=== PATIENT | male | born 1945 | race Caucasian/White ===

== ENCOUNTER 2018-04-04 13:52 | Observation (INO) | payer OTHER ==
[~2018-04-04] VITALS: Ht 177.8 cm; Wt 67.6 kg
[~2018-04-04 13:52] MED LIST: ASPIR 8181 MG PO; FISH OIL 1,001000 M2 PO; LISINOPRIL2.5 M1 PO; METFORMIN HCL500 MG PO; PRAVACHOL20 MG PO; TRADJENTA5 MG PO; VITAMIN D1000 UNI1 PO
[2018-04-04 14:02] VITALS: BP 155/74
[2018-04-04 14:15] LABS: ABSOLUTE BASOPHILS 0.1 thou/uL (0.0-0.2); ABSOLUTE EOSINOPHILS 0.1 thou/uL (0.0-0.7); ABSOLUTE LYMPHOCYTES 1.1 thou/uL (0.8-5.3); ABSOLUTE NEUTROPHILS 5.5 thou/uL (1.6-8.1); BASOPHILS 0.8 %; EOSINOPHILS 1.7 %; HEMOGLOBIN 13.8 gm/dL (14.0-18.0); LYMPHOCYTES 13.9 %; MCH 28.8 pg (26.0-34.0); MCHC 33.5 g/dL (28.0-37.0); MONOCYTES 13.1 %; MPV 8.7 fl. (7.2-11.1); NUCLEATED RBCS 0 /100WBC; PLATELET COUNT* 232 thou/uL (150-400); POLYS 70.5 %; RBC 4.77 mil/uL (4.50-6.00); RDW-CV 13.2 % (10.5-14.5); WBC 7.8 thou/uL (4.0-11.0)
[2018-04-04 14:24] LABS: APTT 28.1 Seconds (25.0-31.3); PROTIME 10.3 Seconds (9.20-11.50)
[2018-04-04 14:35] LABS: ANION GAP 8 mmol/L (7-16); BUN 20 mg/dL (7-18); CALCIUM 9.4 mg/dL (8.5-10.1); CHLORIDE 102 mmol/L (98-107); CO2 28 mmol/L (21-32); CREATININE 1.2 mg/dL (0.6-1.3); GLUCOSE 154 mg/dL (70-99); POTASSIUM 4.4 mmol/L (3.5-5.1); SODIUM 138 mmol/L (136-145)
[2018-04-04 14:53] LABS: ALBUMIN 4.4 g/dL (3.4-5.0); ALKALINE PHOSPHATASE 83 U/L (46-116); LIPASE 138 U/L (73-393); MAGNESIUM 1.8 mg/dL (1.8-2.4); NT-PRO BRAIN NAT PEPTIDE 260 pg/mL (<300); SGOT 12 U/L (15-37); SGPT 23 U/L (30-65); TOTAL BILIRUBIN 0.6 mg/dL (<0.1-1.0); TOTAL PROTEIN 7.8 g/dL (6.4-8.2); TROPONIN-I LEVEL <0.06 ng/mL (<0.06)
[2018-04-04 18:26] VITALS: BP 143/65
[2018-04-04 19:55] VITALS: BP 150/65
[2018-04-04 20:45] VITALS: BP 146/69
[2018-04-05 04:51] VITALS: BP 134/65
--- NOTE | 2018-04-05 07:50 | NUR ---
PT ADMITTED TO ROOM 228 DURING THIS SHIFT; VSRonni, A+OX4, DENIES CHEST PAIN, NPO AT MIDNIGHT FOR CARDIOLOGY CONSULT IN THE MORNING. HE IS ABLE TO COMMUNICATE HIS NEEDS TO STAFF EFFECTIVELY. HE HAS DENIED THE NEED FOR PAIN MEDICATION UP TO THIS TIME. PT UP AND STEADY AD DAYDAY TO THE BATHROOM AT THIS TIME.
[2018-04-05 08:46] VITALS: BP 135/69
--- NOTE | 2018-04-05 08:46 | NUR ---
ASSUMED PT. CARE AND RECEIVED REPORT AT 0730. PT A/OX4, VSS, MONITOR ON TRACING SB PVC. PT. DENIES CURRENT CP/SOB. ONR A @ 99%. FULL ASSESSMENT COMPLETED, REFER TO GARETT. PT. NPO FOR CV, STATES UNDERSTANDING. CALL LIGHT IN REACH, WILL CONTINUE WITH PLAN OF CARE.
--- NOTE | 2018-04-05 10:03 | EKG ---
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1945 Requested By: Fransisco Kilgore Order Number: [id number] MD: Augustus Padilla Measurements Intervals [place] Rate: 86 P: 68 GA: 176 QRS: 23 QRSD: 103 T: 42 QT: 392 QTc: 469 Interpretive Statements Sinus rhythm Multiple ventricular premature complexes Left atrial enlargement Posterior infarct nonspecific st changes Compared to ECG 02/05/2016 10:47:19 Ventricular premature complex(es) now present Atrial abnormality now present Electronically Signed On 04-05-2018 10:03:12 CDT by Augustus Padilla [email or web address] <ELECTRONICALLY SIGNED> By: Augustus Padilla MD, [facility] 04/05/18 1003 1358 [id number] Augustus Padilla MD, [facility] /EPI
--- NOTE | 2018-04-05 10:05 | EKG ---
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: [facility] : 1945 Requested By: Fransisco Kilgore Order Number: [id number] MD: Augustus Padilla Measurements Intervals [place] Rate: 68 P: 50 [place]: 173 QRS: 17 QRSD: 104 T: 22 QT: 431 QTc: 459 Interpretive Statements Sinus rhythm Ventricular premature complex Abnormal R-wave progression, early transition Electronically Signed On 04-05-2018 10:05:29 CDT by Augustus Padilla [email or web address] <ELECTRONICALLY SIGNED> By: Augustus Padilla MD, [facility] 04/05/18 1005 1849 1849 Augustus Padilla MD, FACC /EPI
--- NOTE | 2018-04-05 10:07 | EKG ---
[facility] [address] [place] [address] ELECTROCARDIOGRAM REPORT Name: AURORA NELSON Room: [address] ADM IN R.#: [id number] Admission: 04/04/18 Attend Phys: Joshua York Discharge: Date of : 47 Report #: [id number] THIS REPORT FOR: //name// [facility] Test Date: 2018-04-05 Test Time: 01:58:34 Pat Name: AURORA NELSON Department: Room: 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
[2018-04-05 14:00] VITALS: BP 135/69
[2018-04-05 15:39] VITALS: BP 97/58
[2018-04-05] MEDS ORDERED: OMEPRAZOLE20 MG PO (16:06)
--- NOTE | 2018-04-05 17:41 | CARDNUC ---
[place] [address] CARDIAC NUCLEAR IMAGING REPORT Name: LESLIEAURORA Abiodun Room: [address] IN [facility]#: [id number] Admission: 04/04/18 Attend Phys: Donell Goldberg Discharge: Date of : 47 Date of Service: 04/05/18 1741 Report #: [id number] THIS REPORT FOR: //name// APPROVED REPORT Study performed: 04/05/2018 09:23:00 Indication: chest pain, dyspnea Patient Location: In-Patient Room #: 228 Stress Tech: Yamel Leo Stress Nurse: Janis Zaidi RN Ht: 5 ft 10 in Wt: 149 lbs BSA: 1.84 m2 BMI: 21.37 Medical History Medical History: hyperlipidemia, hypertension, diabetes Medications: aspirin 81, atorvastatin, lisinopril Allergies: nkda Cardiac Risk Factors: age, hyperlipidemia, hypertension, diabetes, family hx Previous Cardiac Procedures: none Exercise History: Physically active Resting Data Rest SPECT myocardial perfusion imaging was performed in supine position 30 minutes following the intravenous injection of 10.2 mCi of Tc-99m Sestamibi. Time of rest injection: 09:30 The images were gated to evaluate regional wall motion and calculate left ventricular ejection fraction. Administration Route: IV Administration Site: Left AC Exercise Stress At peak stress, the patient was injected intravenously with 33.0mCi of Tc-99m Sestamibi. Time of stress injection: 1110 Administration Route: IV Administration Site: Left AC Heart Rate at time of stress injection: 132 bpm. Gated Stress SPECT was performed 30 minutes after stress injection. The images were gated to evaluate regional [place] [address] CARDIAC NUCLEAR IMAGING REPORT Name: AURORA NELSON Room: [address]#: [id number] Admission: 04/04/18 Attend Phys: Donell Goldberg Discharge: Date of : 47 Date of Service: 04/05/18 1741 Report #: [id number] left ventricular ejection fraction. Prone imaging was performed. Stress Test Details Stress Test: Exercise stress testing was performed using a Beto protocol. HR Max Heart Rate (APMHR): 149 bpm Resting HR: 75 bpm Target HR (85% APMHR): 126 bpm Max HR Achieved: 132 bpm % of APMHR: 88 Recovery HR: 94 bpm BP Resting BP: 127/74 mmHg Recovery BP: 120/57 mmHg ECG Resting ECG: Sinus Rhythm, normal EKG Stress ECG: Sinus Tachycardia ST Change: None Arrhythmia: None Recovery ECG: Sinus Rhythm Recovery ST Change: None Recovery Arrhythmia: None Clinical Reason for Termination: Dyspnea Exercise duration: 5 min 1 sec Exercise capacity: 7.03 METs Overall Exercise Capacity for Age: Normal The patient tolerated standard Beto protocol exercise without significant cardiac symptoms. Stress ECG Conclusion The baseline 12-lead EKG shows sinus rhythm without significant ST or T wave abnormality. EKGs obtained during and post exercise showed sinus rhythm and sinus tachycardia without significant ST or T wave changes when compared to baseline. There were no significant stress-induced arrhythmias. Study Quality Study: Good Artifact: Mild Diaphragmatic [place] [address] CARDIAC NUCLEAR IMAGING REPORT Name: AURORA NELSON Room: [address] IN [facility].#: [id number] Admission: 04/04/18 Attend Phys: Donell Goldberg Discharge: Date of : 47 Date of Service: 04/05/18 1741 Report #: [id number] At rest, the left ventricular ejection fraction was 62%.. Post stress, the left ventricular ejection was 74%.. TID = 0.63. Perfusion Perfusion images obtained in the supine position at rest and post stress show a focal region of photopenia involving the basal to mid inferior wall that resolves completely with stress prone imaging suggesting diaphragmatic attenuation artifact. No other significant fixed or reversible defects are identified. Wall Motion Normal left ventricular wall motion. Nuclear Conclusion ECG Findings: negative for ischemia Clinical Findings: negative for ischemia Nuclear Findings: negative for ischemia Exercise Capacity: fair Left Ventricular Function: normal Risk Study: low Myocardial perfusion images show no defect to suggest infarct or ischemia. Left ventricular systolic function appears normal on gated studies. This is a low risk study. <Conclusion> The baseline 12-lead EKG shows sinus rhythm without significant ST or T wave abnormality. EKGs obtained during and post exercise showed sinus rhythm and sinus tachycardia without significant ST or T wave changes when compared to baseline. There were no significant stress-induced arrhythmias. <ELECTRONICALLY SIGNED> By: Pasha Hyman MD, FACC 04/05/181740 40 40 Pasha Hyman MD, FACC /INF
--- NOTE | 2018-04-05 17:58 | NUR ---
DR ALVARADO ON UNIT, OKAY WITH PT DCING, STRESS TEST NEGATIVE. IV AND MONITOR REMOVED. PT. GIVEN DC INSTRUCTIONS AND VERBALIZED UNDERSTANDING. PT. LEFT WITH SPOUSE TO RETURN HOME IN PERSONAL VEHICLE, ALL BELONGINGS ACCOUNTED FOR.
--- NOTE | 2018-04-09 15:12 | CON ---
[address] [address] CONSULTATION Name: AURORA NELSON Room: [address] Yany Delgado#: [id number] Admission: 04/04/18 Attend Phys: Joshua York Discharge: 04/05/18 Date of : 47 Report #: [id number] THIS REPORT FOR: //name// CC: Jada Goldberg DATE OF SERVICE: 04/05/2018 PRIMARY CARE PHYSICIAN: Dr. Jada Yang in [place]. HISTORY OF PRESENT ILLNESS: The patient is a 72-year-old white male who I was asked to see in the hospital today after he had burning in his chest. The patient has a previous history of heart disease. He stays active working in the yard. He has had no previous testing of his heart. Last few weeks, he has had intermittent burning in his chest. It can occur at rest or with activity. It is associated with occasional belching. There is no radiation of the pain associated with shortness of breath, diaphoresis, nausea. He has had no bleeding. He denied any cough. He denies exertional dyspnea, palpitations, syncope, edema. Because of the intermittent burning, went to urgent care yesterday in [place]. He was sent over to the Emergency Room here at [facility] and admitted. PAST MEDICAL HISTORY: Significant for surgery on his knee. He has a history of diabetes, hyperlipidemia. No history of hypertension. MEDICATIONS: Include lisinopril for renal protection, pravastatin, metformin, Tradjenta. ALLERGIES: He has no known drug allergies. FAMILY HISTORY: His father had atrial fibrillation. SOCIAL HISTORY: He is . He and his live here in [place]. 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 No smoking. Rarely drinks alcohol. REVIEW OF SYSTEMS: He has had no history of stroke, asthma, peptic ulcer disease, liver disease, kidney disease, cancer, psychiatric illness, chronic skin condition. PHYSICAL EXAMINATION: GENERAL: Elderly male, appeared in no distress. VITAL SIGNS: He had a blood pressure of 140/70, pulse 66. He was afebrile. HEENT: He is anicteric. Conjunctivae pink. Mucous membranes moist. NECK: Veins nondistended. No carotid bruits. Neck supple. CHEST: [place] [address] CONSULTATION Name: AURORA NELSON Room: [address] [place]#: [id number] Admission: 04/04/18 Attend Phys: Joshua York Discharge: 04/05/18 Date of : 47 Report #: [id number] HEART: Regular rate and rhythm without rub or murmur. ABDOMEN: Soft. EXTREMITIES: Had no edema. Posterior tibial pulse 2+ bilaterally. SKIN: Warm, dry. NEUROLOGIC: Nonfocal. LYMPH: No adenopathy. MUSCULOSKELETAL: No joint effusion. DIAGNOSTIC DATA: His ECG done yesterday showed a sinus rhythm. There was no ST or T-wave change noted. LABORATORY DATA: Creatinine 1.2. Liver function studies were normal. Troponins all 0.06. White blood cell count 7.8, hemoglobin 13.8. D-dimer 0.27. X-rays done in the Emergency Room yesterday, he had a portable chest x-ray that showed normal heart size, clear lung aguayo. He had a previous CT scan of the head back in 2016 without contrast that showed atrophy, subtle white matter changes. He had an MRA of the carotids done in 2016 that showed mild right internal carotid artery narrowing of 30%-40% below. No left carotid stenosis. IMPRESSION AND RECOMMENDATIONS: 1. Chest burning. Suspect gastrointestinal. No evidence of acute myocardial infarction. Because of risk factors, I would recommend Cardiolite stress test to rule out ischemia. 2. Diabetes. 3. Hyperlipidemia. The patient is on a statin drug. <ELECTRONICALLY SIGNED> By: Augustus Padilla MD, FACC 04/09/18 1512 0920 1540Davijoshua Padilla MD, FACC /nt
== END 2018-04-05 18:00 | disposition home or self-care (01) ==
LOC: M.ERS 13:52 → M.2W 14:56 → M.TBA-ER 14:56 → M.2W 14:56
PROVIDERS: Family Medicine; ADMIT Internal Medicine
DX: R07.9 Chest pain, unspecified (principal); E11.9 Type 2 diabetes mellitus without complications; R10.13 Epigastric pain; K21.9 Gastro-esophageal reflux disease without esophagitis; R06.02 Shortness of breath; E78.5 Hyperlipidemia, unspecified; Z72.89 Other problems related to lifestyle

== ENCOUNTER → 2018-07-05 | Outpatient (CLI) | payer OTHER ==
[~2018-07-05] MED LIST changes: +OMEPRAZOLE20 MG PO
== END ==
LOC: M.ULTRA 08:25
DX: R10.13 Epigastric pain (principal); R10.9 Unspecified abdominal pain

== ENCOUNTER → 2018-07-17 | Outpatient (CLI) | payer OTHER ==
[2018-07-17 08:25] LABS: CREATININE 1.2 mg/dL (0.6-1.3)
== END ==
LOC: M.LAB 07:56 → M.CT 09:30
PROVIDERS: Nurse Practitioner
DX: N28.1 Cyst of kidney, acquired (principal); N20.0 Calculus of kidney; K76.9 Liver disease, unspecified; I25.10 Atherosclerotic heart disease of native coronary artery without angina pectoris; R93.5 Abnormal findings on diagnostic imaging of other abdominal regions, including retroperitoneum

== ENCOUNTER → 2018-08-31 | Outpatient (CLI) | payer OTHER | LOC: M.RAD 14:07 | DX: M47.812 Spondylosis without myelopathy or radiculopathy, cervical region (principal); M19.012 Primary osteoarthritis, left shoulder; G89.29 Other chronic pain; M54.5 Low back pain; I70.0 Atherosclerosis of aorta ==